=== PATIENT | female | born 1990 | race Caucasian/White ===

== ENCOUNTER → 2022-12-20 | Outpatient (CLI) | payer MEDICAID, SELFPAY | END | disposition home or self-care (01) | LOC: LABSPEC 10:31 | PROVIDERS: Visit Provider Obstetrics & Gynecology | DX: Z12.4 Encounter for screening for malignant neoplasm of cervix (principal) | CPT/HCPCS: 87624; 88175; G0145 ==

== ENCOUNTER 2022-12-26 05:19 | Day surgery (SDC) | payer MEDICAID, SELFPAY ==
[2022-12-20 10:00] LABS: Hematocrit 40.7 % (37-47); Hemoglobin 13.4 g/dL (12.0-15.0); Mean Corp Hgb Conc 32.9 g/dL (32-36); Mean Corpuscular Hgb 30.5 pg (27.0-32.0); Mean Corpuscular Volume 92.5 fL (81-99); Mean Platelet Vol. 9.8 fl (6.2-12.0); Platelet Count 280 K/mm3 (150-450); RBC Distribution Width SD 44.1 fl (35.1-43.9); White Blood Count 6.3 K/mm3 (4.4-11.0)
[2022-12-20 10:06] LABS: Partial Thromboplast Time 29.2 Seconds (24.1-36.2); Prothrombin Time (Protime)PT. 12.6 SECONDS (11.7-14.9)
[2022-12-20 10:52] LABS: AST(SGOT) 15 U/L (15-37); Alanine Aminotransfer ALT/SGPT 21 U/L (13-56); Albumin, Serum 3.7 g/dL (3.2-5.0); Alkaline Phosphatase 63 U/L (45-117); Bilirubin, Direct 0.08 mg/dL (0.00-0.30); Globulin 3.2 g/dL (2.2-4.2); Magnesium 2.1 mg/dL (1.6-2.6); Protein, Total 6.9 g/dL (6.4-8.2); Thyroid Stim Hormone (TSH) 0.46 uIU/mL (0.358-3.74)
[2022-12-26] VITALS (13 sets, daily range): BP systolic 104–131; BP diastolic 62–90; PULSE 69–90; RESP 13–16; TEMP 36.3–36.8; O2SAT 96–100; BMI 21.2
--- NOTE | 2022-12-26 | HYST_PTH ---
PATIENT: JOSE OAKES [place] [facility] [place][id number] AGE/SX: 32/F ROOM: RE12/26/[address]: Dr. David Humphrey MD : 1990 BED: DIS: 12/26/2022 SPEC #: [id number] RECD: 12/26/22 12:59 STATUS: BHARATH REQ #: [id number] MALATHI: 12/26/22 00:[address]: David Humphrey DEPT: SURGICAL PATHOLOGY RECD BY: Kevin Barakat ENTERED: 12/26/22 12:59 SP TYPE: HYSTERECT OTHR DR: Maggie Ronquillo, [employer] SALES REPRESENTATIVE-C Tissues: Uterus, NOS Procedures: Surgery Specimen Level V HEADER OPERATION: ERAS, lap robotic hysterectomy, cysto PRE-OP DIAGNOSIS: Pelvic pain, abnormal uterine bleeding TISSUE SUBMITTED: Uterus, cervix MICROSCOPIC DIAGNOSIS Uterus and cervix, hysterectomy: Cervix ? chronic inflammation and squamous metaplasia. Endometrium ? proliferative endometrium. Myometrium ? intramural and subserosal leiomyomas (larger one measuring 1.2 cm in greatest dimension). See comment. SJ:chantal 12/27/2022 COMMENT The subserosal leiomyoma also shows extensive hyalinization and dystrophic calcifications. MICROSCOPIC DESCRIPTION Slides are reviewed. GROSS DESCRIPTION Received in fixative is one container labeled with the patient's name and designated uterus, cervix. The specimen consists of a hysterectomy specimen consisting of uterus with cervix weighing 112 gm and measuring 10.0 x 8.0 x 5.0 cm. The serosal surface is ruiz, glistening. A subserosal nodule is noted. The ectocervical mucosa shows focal erosion. The external os is oval and patulous in contour. The endocervical canal measures 3.0 cm in length and the endocervical mucosa is unremarkable. The triangular endometrial cavity measures 4.0 cm in length and up to 3.5 cm in width. The endometrium is ruiz, glistening without any mass lesion and measures 0.1 cm in thickness. Sections of the uterine wall reveal one intramural and one subserosal nodular mass. The larger subserosal nodular mass measures 1.2 cm in greatest dimension. Sections of these masses reveal ruiz whorled cut surfaces without areas of hemorrhage, necrosis or cystic degeneration. The subserosal nodular mass also shows focal area of yellowish degenerative changes. The uterine wall measures up to 2.5 cm in thickness. Database Operator sections are submitted in seven cassettes as follows: 1 - anterior cervix, 2 - posterior cervix, 3 & 4 - anterior uterine wall, 5 & 6 - posterior uterine wall, 7 - nodular masses. / ZBIGNIEW:chantal 12/26/2022 TC:1 CPT: 95329
[2022-12-26] MEDS: Magnesium 1 GM over 15 mins IV (06:00)
[2022-12-26 06:11] LABS: Internal QC Validated? YES +Cl - CLEAR BKGD; Pregnancy, Urine Negative Negative
[2022-12-26] MEDS: Lactated Ringers 1,000 ML 40 ML IV (06:22)
[2022-12-26] MEDS: Acetaminophen 500 MG Tablet 1000 MG PO (06:22)
[2022-12-26] MEDS: Gabapentin 600 MG Tablet PO (06:23)
--- NOTE | 2022-12-26 06:57 | HP.PCM.OB_ITS ---
History and Physical Date of Admission: 12/26/22 HPI: 32-year-old female with pelvic pain and abnormal uterine bleeding plan for robotic assisted total laparoscopic hysterectomy bilateral salpingectomy and cystoscopy. Denies headache or vision changes, chest pain or shortness of breath, nausea or vomiting, diarrhea or constipation, fevers or chills. 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 Depression Surgical history: 1. Tubal ligation and endometrial ablation in 2019 Medications: 1. Fluoxetine 2. Hydroxyzine Allergies: No known drug allergies Family history: Denies history of blood clots or bleeding disorders Social history: Reports tobacco use, denies alcohol or drug use Review of system: Negative otherwise stated above Physical exam Vitals: BP 104/62, heart rate 82, respiratory rate 16, temp 97.5 ?F, oxygen saturation 100% on room air General: No acute distress HEENT: Normal cephalic/atraumatic, PERRLA Cardiorespiratory: No increased effort Abdomen: Soft, nontender, nondistended Extremities: No edema Neurologic: Cranial nerves II through XII grossly intact, no focal deficits Musculoskeletal: Strength 5 out of 5 throughout extremities Assessment/plan: 32-year-old female with pelvic pain and abnormal uterine bleeding plan for robotic assisted total laparoscopic hysterectomy bilateral salpingectomy and cystoscopy. All risk, benefits, alternatives discussed with patient. Risks include but not limited to: Risk of bleeding the point transfusion, infection, injury to surrounding tissue including bowel/bladder potentially requiring prolonged Marley catheter use/major abdominal vessels, VTE, ICU admission. Patient aware and consented. Patient agrees to Dr. Lary Humphrey starting procedure.
[2022-12-26] MEDS: Cefazolin 2 GM in 0.9% Normal Saline 100 ML IV (07:28)
[2022-12-26 07:51] LABS: Bedside Glucose 97 mg/dL (74-106)
--- NOTE | 2022-12-26 09:08 | PCM.DC ---
Discharge Instructions Diet Discharge Diet: No restrictions Activity Discharge Activity: Return to Normal Activity, May Drive, May Shower and - (No tub baths for 2 weeks) May resume sexual activity in: 4-6 weeks Lifting Restrictions: No lifting over 25 pounds for 2 to 3 weeks Dressing / Incision Call your doctor if your incision/area has: Continuous Slow Oozing and Foul Smelling Discharge Call your doctor if you observe: Fever of 101 or Higher, Shortness of breath and Chest pain Follow Up Care Please Follow Up With: David Humphrey MD When: 2 weeks postoperatively Test Results: Test results from this visit will be discussed in further detail at your follow-up appointment, if applicable. Discharge Plan Admission Primary Reason for Your Visit: Hysterectomy Attending Provider: David Humphrey Primary Care Provider: Maggie Ronquillo NP Discharge Orders/Prescriptions Prescriptions: New oxycodone 5 mg tablet 5 mg PO Q6H PRN (Reason: pain (scale score 7-10)) 5 Days Qty: 24 0RF Continued fluoxetine 40 mg Capsule 40 mg PO DAILY hydroxyzine HCl 10 mg Tablet 10 mg PO PRN PRN (Reason: Anxiety) Referrals / Follow Up: Maggie Ronquillo NP, TRANSCRIPTION COORDINATOR-C [Primary Care Provider] - Disposition Disposition (needs filled in before D/C Order can be placed): Home, Self Care
--- NOTE | 2022-12-26 09:08 | PCM.OPRPT ---
Report of Operation Date of Procedure: 12/26/22 Pre-Operative Diagnosis: Pelvic pain, abnormal uterine bleed Post-Operative Diagnosis: Pelvic pain, abnormal uterine bleeding, leiomyoma Surgery/Procedure Performed:: Robotic assisted total laparoscopic hysterectomy, cystoscopy Description of Surgical Findings:: Surgeon: David Humphrey MD Anesthesia: General EBL: 25 cc Urine output: 300 cc IV fluids: 1700 cc Complications: None Specimen: Cervix, uterus Findings: Subserosal fundal fibroid 2 cm in size otherwise normal uterus and ovaries. Patient status post salpingectomy. Post procedure cystoscopy with no pathology noted, bilateral ureteral jets noted. Consent: Patient was pelvic pain and abnormal uterine bleeding elects for robotic assisted total laparoscopic hysterectomy, cystoscopy. Patient understands risk of the procedure include but are not limited to visceral or vascular injury, prolonged hospitalization, blood loss need for transfusion, reoperation. Patient state understanding and wished to proceed. All questions were answered and consent was signed. Procedure: Patient brought back to the OR where general anesthesia was found to be adequate. 2 g of Ancef were given for infection prophylaxis. Patient was prepared and draped in a dorsolithotomy position with yellowfin stirrups. A weighted speculum is placed in the posterior aspect of vagina and cervical dilators were used dilate the cervix. Uterine manipulator was placed. Varies needle was inserted at the umbilicus and water safety test was passed. Abdomen was insufflated. 8 mm robotic trocar incision was made and inserted at the midline supraumbilical. Laparoscope was inserted and above findings were noted. Bilateral lower quadrant 8 mm robotic trocars were inserted under direct visualization. Left upper quadrant 8 mm air seal was placed under direct visualization. Robot was docked, organ targeting performed. Bilateral ureters were identified and noted to be out of the operative field. Using a vessel sealer and monopolar scissors the left round ligament was identified cut and cauterized, anterior and posterior portions of the broad ligament were dissected. Bladder flap was developed. Left utero-ovarian ligament was identified cut and cauterized. Left uterine vessels were skeletonized. Left uterine vessels were cut and cauterized, lateralized beyond the level of colpotomy cup. Right round ligament was identified cut and cauterized anterior and posterior portions of the broad ligament were dissected. Bladder flap was fully developed beyond the level of the colpotomy cup. Right utero-ovarian ligament was identified cut and cauterized. Right uterine vessels were skeletonized. Right uterine vessels were cut and cauterized lateralized beyond the level colpotomy cup. Circumferential colpotomy was made with monopolar scissors. Uterus and cervix were removed from the abdominal cavity and sent to pathology. Good hemostasis was noted. Using V-Loc suture the colpotomy was closed in continuous running fashion. Good hemostasis was noted. Irrigation was performed in the abdomen and good hemostasis was noted. Cystoscopy was performed and above findings were noted, no pathology and bilateral ureteral jets. Abdomen was desufflated, trocars were removed under direct visualization, good hemostasis was noted. Trocar sites were closed in a subcutaneous fashion, skin glue placed on incisions. Good hemostasis was noted. All counts were correct x2. Patient tolerated procedure well and was brought to recovery in stable condition. construction materials tester: Donato Fischer
[2022-12-26] MEDS: Ketorolac 30 MG/ML Syringe IV (10:38)
[2022-12-26] MEDS: Ondansetron 4 MG/2 ML Vial IV (10:52)
--- NOTE | 2022-12-26 12:18 | SUR.PHASEII ---
MODERATE AMT OF BLOOD ON BED WHEN PT GOT UP TO URINATE. BED CHANGED. PT PUT UNDERWEAR ON WITH PAD.
[2022-12-26] MEDS: oxyCODONE 5 MG Tablet PO (12:25)
== END 2022-12-26 12:56 | disposition home or self-care (01) ==
LOC: SDC 05:21 → AC 05:27
PROVIDERS: Anesthesiology; PCP Nurse Practitioner Family; Referring Provider Obstetrics & Gynecology; Visit Provider Obstetrics & Gynecology
PROC: 0UT90ZZ Resection of Uterus, Open Approach (ICD-10-PCS; CPT 58570; principal; 2022-12-26 07:10)
DX: D25.1 Intramural leiomyoma of uterus (principal); D25.2 Subserosal leiomyoma of uterus; E05.90 Thyrotoxicosis, unspecified without thyrotoxic crisis or storm; F32.A Depression, unspecified; F17.200 Nicotine dependence, unspecified, uncomplicated; Z79.899 Other long term (current) drug therapy; Z98.51 Tubal ligation status
CPT/HCPCS: 58570; S2900; 00840; 36415; 80076; 81025; 82962; 83735; 84443; 85027; 85610; 85730; 86850; 86900; 86901; 88307; J7120; J2405; J3475